=== PATIENT | male | born 1990 | race Caucasian/White ===

== ENCOUNTER 2020-03-02 19:53 | Emergency (ER) | payer OTHER, SELFPAY ==
[2020-03-02] VITALS (13 sets, daily range): BP systolic 126–181; BP diastolic 60–116; PULSE 97–123; RESP 18–26; TEMP 37.3; O2SAT 94–98; BMI 45.6
--- NOTE | 2020-03-02 20:05 | ED_ITS ---
HPI - SOB/Dyspnea General Chief Complaint: Shortness of Breath/Dyspnea Stated Complaint: SOB Time Seen by Provider: 03/02/20 19:54 Source: patient and family Mode of arrival: Ambulatory Limitations: no limitations History of Present Illness HPI Narrative: 29-year-old male nonsmoker history of morbid obesity and mild hypertension presents with his significant other in the chief complaint of rapidly worsening shortness of breath, cough with occasional hemoptysis and a recently diagnosed prostate cancer with significant metastatic involvement of his chest and mediastinum. Patient had developed some shortness of breath and had a telephone encounter with the [employer] on February 16 and subsequent negative [place] it does sting. He subsequently had chest x-ray performed on February 21 that showed the suspicion of a chest mass and the same day had CT of chest, abdomen, pelvis with IV contrast. Patient was at that point referred to Dr. Jan Leal at [facility] for evaluation. Patient was seen and evaluat ed on February 28 and had plans for multiple outpatient studies including PET scan and tissue biopsy by Interventional Radiology at [facility]. MD Complaint: shortness of breath and cough Onset (ago): day(s) Severity: severe Consistency/Duration: constant Relieving factors: nothing Exacerbating factors: exertion Associated symptoms: denies other symptoms Treatment prior to arrival: none Related Data Home Medications Medication Instructions Recorded Confirmed albuterol sulfate [ProAir HFA] 1 puff INHALATION QID 02/29/20 02/29/20 amoxicillin-pot clavulanate 1 tab PO BID 02/29/20 02/29/20 hydrochlorothiazide 25 mg PO DAILY 02/29/20 02/29/20 Allergies Allergy/AdvReac Type Severity Reaction Status Date / Time No Known Drug Allergies Allergy Verified 03/02/20 20:10 Review of Systems Constitutional Constitutional: Reports chills, Reports fatigue, Denies fever(s), Denies frequent falls, Denies lethargy, Reports poor appetite and Reports weakness Eyes Eyes: Denies change in vision, Denies eye discharge, Denies irritation and Denies loss of vision ENT Ears, Nose, Mouth, and Throat: Denies change in voice, Denies dizziness, Denies neck pain, Denies sore throat and Denies throat swelling Cardiovascular Cardiovascular: Denies chest pain, Denies irregular heart rhythm, Denies lightheadedness, Denies palpitations, Reports dyspnea, Reports dyspnea on exertion and Denies orthopnea Respiratory Respiratory: Reports cough, Reports dyspnea, Reports dyspnea on exertion and R eports wheezing Gastrointestinal Gastrointestinal: Denies abdominal pain, Denies change in bowel habits, Denies diarrhea, Denies nausea and Denies vomiting Musculoskeletal Musculoskeletal: Denies neck pain and Denies numbness Integumentary/Breasts Skin/Breast: Denies pruritus, Denies erythema, Denies rash and Denies wounds Neurologic Neurologic: Denies behavioral changes, Denies confusion, Denies dizziness, Denies frequent falls, Denies loss of vision, Denies numbness and Reports weakness Psychiatric Psychiatric: Denies anxiety, Denies behavioral changes, Denies confusion, Denies depression, Denies homicidal ideation and Denies suicidal ideation Endocrine Endocrine: Reports fatigue, Denies flushing and Denies palpitations Hematologic/Lymphatic Hematologic/Lymphatic: Denies easy bruising Allergic/Immunologic Allergic/Immunologic: Denies urticaria, Denies throat swelling and Reports wheezing Patient History Medical History Hypertension (Acute ~2020) Obesity (Acute) Social History Smoking Status: Never smoker alcohol intake: current (beer) substance use type: does not use Smoking Status: Never smoker Exam Narrative Exam Narrative: GENERAL: [29] year old patient appears stated age. Well- nourished, well-developed patient, in obvious distress, minimal exertion results in significant work of breathing, mild diaphoresis HEAD: Atraumatic. Normocephalic. EYES: Pupils equal round and reactive. Extraocular motions intact. No scleral icterus. No injection or drainage. ENT: Nose without bleeding, purulent drainage. Throat without erythema, tonsillar hypertrophy or exudate. Airway patent. NECK: Trachea midline. Non tender CARDIOVASCULAR: Regular rate and rhythm without murmurs, gallops, or rubs. RESPIRATORY: Clear to auscultation. Breath sounds equal bilaterally. No wheezes, rales, or rhonchi. GASTROINTESTINAL: Abdomen soft, non-tender, nondistended. EXTREMITIES: No edema or joint tenderness. BACK: Nontender without deformity or crepitance. No flank tenderness. NEURO: AOx3. SKIN: No rash or erythema of visible areas Initial Vital Signs Initial Vital Signs: Vital Signs Temperature 99.1 F 03/02/20 20:00 Pulse Rate 111 H 03/02/20 20:00 Respiratory Rate 18 03/02/20 20:00 Blood Pressure 167/116 H 03/02/20 20:00 Pulse Oximetry 98 03/02/20 20:00 Course Course Course Narrative: Initial call to local oncology after today's CT a demonstrates no PE or effusion. Plan was to consider admission here for urgent administration of chemotherapy. Dr. Leal called back shortly thereafter and stated he was unable to be as aggressive in the treatment of this patient's illness as he would like at this facility in requests transfer to the [facility]. images pushed, face sheet sent to Disc[facility] with medical oncology, happy to accept. Will arrange for bed Orders Ordered: ED Orders 03/02/20 20:06 CT angio chest PE protocol Stat 03/02/20 20:11 EKG-12 Lead Stat 03/02/20 20:25 C-Reactive Protein Quant Stat Complete Blood Count AUTO DIFF Stat Comprehensive Metabolic Panel Stat NT-proBNP (BNP-Adult 18+) Stat Procalcitonin Stat Troponin & CK Cardiac Panel Stat 03/02/20 20:34 Arterial Blood Gas Stat Sodium Chloride (Normal Saline 0.9%) 1,000 mls @ 125 mls/hr IV CONT JUSTIN Last Admin: 03/02/20 20:41 Dose: 125 mls/hr Documented by: NICOLA Vital Signs Vital signs: Vital Signs - 8 hr 03/02/20 20:00 03/02/20 20:02 03/02/20 20:30 Temperature 99.1 F Pulse Rate 111 H 111 H 109 H Respiratory Rate 18 Blood Pressure 167/116 H 167/116 H Pulse Oximetry 98 98 98 03/02/20 21:01 03/02/20 21:11 03/02/20 21:28 Temperature Pulse Rate 107 H 102 H Respiratory Rate 26 H Blood Pressure 169/113 H 181/112 H Pulse Oximetry 96 03/02/20 21:29 03/02/20 21:31 03/02/20 22:00 Temperature Pulse Rate 123 H 107 H 97 H Respiratory Rate 24 21 Blood Pressure 178/104 H 170/104 H Pulse Oximetry 94 95 98 03/02/20 22:30 03/02/20 23:01 03/02/20 23:30 Temperature Pulse Rate 100 H 105 H 114 H Respiratory Rate Blood Pressure 174/106 H 145/60 H Pulse Oximetry 96 96 97 MDM - SOB/Dyspnea Lab Data Result diagrams: 03/02/20 20:25 03/02/20 20:25 Labs: Lab Results 03/02/20 03/02/20 03/02/20 Range/Units 20:25 20:25 20:25 WBC 17.3 H (4.5-11.0) X10^3/uL RBC 4.97 (4.5-5.9) X10^6/uL Hgb 14.6 (13.5-17.5) g/dL Hct 42.0 (41-53) % MCV 84.4 (80-100) fL MCH 29.4 (26-34) PG MCHC 34.8 (30-36) % RDW 13.9 (11.6-14.8) % Plt Count 298 (150-400) X10^3/uL Neut % (Auto) 76.9 H (50-75) % Lymph % (Auto) 9.6 L (25-40) % Island % (Auto) 12.5 (3-14) % Eos % (Auto) 0.6 L (2-4) % Baso % (Auto) 0.4 (0-2) % Neut # (Auto) 81125 H (9218-3315) /uL Lymph # (Auto) 1700 (9629-7374) /uL Island # (Auto) 2200 H (0-900) /uL Eos # (Auto) 100 (0-450) /uL Baso # (Auto) 100 (0-100) /uL ABG pH (7.35-7.45) ABG pCO2 (35-45) mmHg ABG pO2 (80-100) mmHg ABG HCO3 (22-26) mmol/L ABG Total CO2 (21-31) mmol/L ABG O2 Saturation (95-100) % ABG Base Excess (-2-2) mmol/L FiO2 Sodium 135 L (137-145) mmol/L Potassium 4.0 (3.4-5.1) mmol/L Chloride 102 (98-107) mmol/L Carbon Dioxide 26 (22-32) mmol/L BUN 11 (9-20) mg/dL Creatinine 0.80 (0.66-1.25) mg/dL Estimated GFR > 60.0 (>60) mL/min BUN/Creatinine Ratio 13.8 (6-22) Glucose 103 H (70-100) mg/dL Calcium 9.4 (8.4-10.2) mg/dL Total Bilirubin 0.9 (0.2-1.3) mg/dL AST 40 (17-59) IU/L ALT 29 (<50) IU/L Alkaline Phosphatase 64 (38-126) U/L Total Creatine Kinase 56 (55-170) U/L CK-MB (CK-2) TNP CK-MB (CK-2) Rel Index TNP Troponin I 0.039 H (0.01-0.034) ng/mL C-Reactive Protein 20.2 H (<1.0) mg/dL NT-Pro-B Natriuret Pep 163 H (<125) pg/mL Total Protein 7.5 (6.3-8.2) g/dL Albumin 3.9 (3.5-5.0) g/dL Globulin 3.6 (1.7-4.1) g/dL Albumin/Globulin Ratio 1.1 (1.0-2.8) Procalcitonin 0.12 (<0.5) ng/mL 03/02/20 Range/Units 20:34 WBC (4.5-11.0) X10^3/uL RBC (4.5-5.9) X10^6/uL Hgb (13.5-17.5) g/dL Hct (41-53) % MCV (80-100) fL MCH (26-34) PG MCHC (30-36) % RDW (11.6-14.8) % Plt Count (150-400) X10^3/uL Neut % (Auto) (50-75) % Lymph % (Auto) (25-40) % Island % (Auto) (3-14) % Eos % (Auto) (2-4) % Baso % (Auto) (0-2) % Neut # (Auto) (5550-4695) /uL Lymph # (Auto) (0456-3932) /uL Island # (Auto) (0-900) /uL Eos # (Auto) (0-450) /uL Baso # (Auto) (0-100) /uL ABG pH 7.46 H (7.35-7.45) ABG pCO2 32.1 L (35-45) mmHg ABG pO2 83 (80-100) mmHg ABG HCO3 23 (22-26) mmol/L ABG Total CO2 24 (21-31) mmol/L ABG O2 Saturation 97 (95-100) % ABG Base Excess -1.0 (-2-2) mmol/L FiO2 21 Sodium (137-145) mmol/L Potassium (3.4-5.1) mmol/L Chloride (98-107) mmol/L Carbon Dioxide (22-32) mmol/L BUN (9-20) mg/dL Creatinine (0.66-1.25) mg/dL Estimated GFR (>60) mL/min BUN/Creatinine Ratio (6-22) Glucose (70-100) mg/dL Calcium (8.4-10.2) mg/dL Total Bilirubin (0.2-1.3) mg/dL AST (17-59) IU/L ALT (<50) IU/L Alkaline Phosphatase (38-126) U/L Total Creatine Kinase (55-170) U/L CK-MB (CK-2) CK-MB (CK-2) Rel Index Troponin I (0.01-0.034) ng/mL C-Reactive Protein (<1.0) mg/dL NT-Pro-B Natriuret Pep (<125) pg/mL Total Protein (6.3-8.2) g/dL Albumin (3.5-5.0) g/dL Globulin (1.7-4.1) g/dL Albumin/Globulin Ratio (1.0-2.8) Procalcitonin (<0.5) ng/mL Imaging Data CT scan - chest: Radiologist's Impression: Keny Hampton 29 M [address] [address] [address] Scan Report Signed Patient: Keny Hampton EMR#: [id number] : 1990Acct:[id number] Age/Sex: te of Service: 03/02/20 Loc: ED Accession Number: [id number] Procedure: CT angio chest PE protocol Ordering Provider: [employer] D.O. PROCEDURE: CT ANGIO CHEST PE PROTOCOL INDICATIONS: CP, SOB, hypoxia TECHNIQUE: After the administration of intravenous contrast, 2 mm thick sections acquired from the pulmonary apices to the posterior costophrenic angles. 3-dimensional maximum intensity projection (MIP) coronal and sagittal reformats were then acquired through the thorax. For radiation dose reduction, the following was used: automated exposure control, adjustment of mA and/or kV according to patient size. COMPARISON: [facility], , CT CHEST/ABD/PEL W/CONTRAST, 02/22/2020, 12:17. FINDINGS: Image quality: Excellent. Pulmonary arteries: Pulmonary arteries are normal in size, and demonstrate no intraluminal filling defects to suggest central pulmonary embolism. Lungs and pleura: Innumerable pulmonary masses are visualized bilaterally, ranging in size from less than 1 cm in diameter TO 4.8 cm in diameter. No pleural effusion or pneumothorax. Mediastinum: Heart size is normal, without pericardial effusion. There is a heterogeneously enhancing anterior mediastinal mass which measures approximately 15.5 x 8.2 cm in the axial plane. Additionally, there are multiple pretracheal lymph nodes measuring up to 2.2 cm in diameter. Thoracic aorta is normal in caliber and enhancement. Esophagus is normal in caliber, without hiatal hernia. Bones and chest wall: No suspicious bony lesions. Ribs and thoracic spine appear intact throughout. Thyroid gland. No axillary or supraclavicular adenopathy. Abdomen: Visualized upper abdominal solid organs appear normal in the early arterial phase of enhancement. IMPRESSION: 1. No acute pulmonary embolus. 2. Innumerable pulmonary mass lesions, mediastinal mass, and mediastinal adenopathy consistent with the diagnosis of testicular cancer. Dictated by: Marisa Welch M.D. on 03/02/2020 at 21:08 Approved by: Marisa Welch M.D. on 03/02/2020 at 21:15 Critical Care Time Critical Care Time Critical Care Time: Yes Total Critical Care Time: 30 Attestation: The high probability of a clinically significant, sudden or life threatening deterioration of the [CV] system(s) required my full and direct attention, intervention and personal management. The aggregate critical care time was [30] minutes. This time is in addition to time spent performing reported procedures but includes the following: [x] Data Review and interpretation [x] Patient assessment and monitoring of vital signs [x] Documentation [x] Medication orders and management Discharge Plan Departure Patient Disposition: Admitted as Observation Clinical Impression: Acute dyspnea
[2020-03-02] MEDS: SODIUM CHLORIDE 0.9% 1,000 ML 125 ML IV (20:41)
--- NOTE | 2020-03-02 20:45 | PC.NURSE ---
Pt recently dx with prostate CA with mets. SOB, orthopnea. 97% RA. sitting up position of comfort. IV placed, labs drawn, EKG and ABG obtained. awaiting PE protocol CT.
[2020-03-02 20:51] LABS: Alanine Aminotransferase 29 IU/L (<50); Albumin 3.9 g/dL (3.5-5.0); Albumin Globulin Ratio 1.1 (1.0-2.8); Alkaline Phosphatase 64 U/L (38-126); Aspartate Aminotransferase 40 IU/L (17-59); BUN Creatinine Ratio 13.8 (6-22); Bilirubin Total 0.9 mg/dL (0.2-1.3); Blood Urea Nitrogen 11 mg/dL (9-20); Calcium 9.4 mg/dL (8.4-10.2); Carbon Dioxide 26 mmol/L (22-32); Chloride 102 mmol/L (98-107); Creatine Kinase 56 U/L (55-170); Estimated Glomerular Filt Rate > 60.0 mL/min (>60); Globulin 3.6 g/dL (1.7-4.1); Glucose 103 mg/dL (70-100); HEMOLYSIS 45 (0-50); Sodium 135 mmol/L (137-145); Total Protein 7.5 g/dL (6.3-8.2)
[2020-03-02 20:51] LABS: HCO3 ABG 23 mmol/L (22-26); Oxygen Saturation ABG 97 % (95-100); PCO2 ABG 32.1 mmHg (35-45); PO2 ABG 83 mmHg (80-100); TCO2 ABG 24 mmol/L (21-31); pH ABG 7.46 (7.35-7.45)
[2020-03-02 20:52] LABS: Fractionated Inspired Oxygen 21
[2020-03-02 21:00] LABS: Add Manual Diff / Slide Review NO; Basophils Absolute Auto 100 /uL (0-100); Basophils Percent Auto 0.4 % (0-2); Eosinophils Absolute Auto 100 /uL (0-450); Eosinophils Percent Auto 0.6 % (2-4); Hemoglobin 14.6 g/dL (13.5-17.5); Lymphocytes Absolute Auto 1700 /uL (1100-4500); Lymphocytes Percent Auto 9.6 % (25-40); Mean Corpuscular HGB Conc 34.8 % (30-36); Mean Corpuscular Hemoglobin 29.4 PG (26-34); Mean Corpuscular Volume 84.4 fL (80-100); Monocytes Absolute Auto 2200 /uL (0-900); Monocytes Percent Auto 12.5 % (3-14); Neutrophils Absolute Auto 13300 /uL (1500-7000); Neutrophils Percent Auto 76.9 % (50-75); Platelet Count 298 X10^3/uL (150-400); Red Blood Cell Count 4.97 X10^6/uL (4.5-5.9); Red Cell Distribution Width 13.9 % (11.6-14.8); White Blood Cell Count 17.3 X10^3/uL (4.5-11.0)
[2020-03-02 21:06] LABS: Troponin I 0.039 ng/mL (0.01-0.034)
[2020-03-02 21:07] LABS: NT-proBNP (BNP-Adult 18+) 163 pg/mL (<125)
[2020-03-02 21:08] LABS: Procalcitonin 0.12 ng/mL (<0.5)
[2020-03-02 21:12] LABS: C-Reactive Protein Quant 20.2 mg/dL (<1.0)
[2020-03-03] VITALS: BP 136/66; PULSE 104; O2SAT 95
[2020-03-03 00:29] LABS: COVID19 -Nasal RAPID Negative (Negative)
[2020-03-03 00:30] VITALS: BP 169/116; PULSE 115; O2SAT 96
[2020-03-03 01:00] VITALS: PULSE 113; O2SAT 98
== END 2020-03-03 01:08 | disposition admitted as inpatient to this hospital (09) ==
LOC: ED 21:35 → AC 21:48
PROVIDERS: Emergency Provider Emergency Medicine; Referring Provider Emergency Medicine
DX: R06.02 Shortness of breath (principal); R09.02 Hypoxemia; R07.9 Chest pain, unspecified; E66.01 Morbid (severe) obesity due to excess calories; I10 Essential (primary) hypertension; R05 Cough
CPT/HCPCS: 36415; 36600; 71275; 80053; 82550; 82805; 83880; 84145; 84484; 85025; 86140; 87635; 93005; 99284; 99291; Q9967

== ENCOUNTER → 2020-03-23 11:36 | Outpatient (CLI) | payer OTHER, SELFPAY ==
--- NOTE | 2020-03-23 11:39 | DI.MRI.S_ITS ---
PROCEDURE: MR HEAD/BRAIN WO/W CON INDICATIONS: germ cell tumor, brain metastasis TECHNIQUE: Noncontrast axial T1 spin echo, axial T2 fast spin echo, sagittal and axial FLAIR, coronal T2 fast spin echo, axial gradient echo, axial diffusion and ADC through the brain. After the administration of contrast, axial and coronal 3D VIBE or T1 spin echo with fat saturation through the brain. COMPARISON: Outside Facility, RG, MRI BRAIN W/WO CONTRAST, 03/08/2020, 16:40. FINDINGS: Image quality: Excellent. CSF Spaces: Basal cisterns are patent. No extra-axial fluid collections. Ventricles are normal in size and shape. Brain: No midline shift. No intracranial bleeds or masses. No abnormal intracranial enhancement. Small foci of postcontrast enhancement involving the left insula, right sanchez radiata right frontal cortical randall matter, left cerebellar hemisphere and right cerebellar hemisphere have resolved in the interval since prior MRI obtained March 08, 2020. Focus of GRE susceptibility artifact noted in the anterior margin of the left insula which corresponds to the area of prior ring enhancement. The brainstem appears normal. Diffusion-weighted images demonstrate no acute ischemic insults. Multiple, small, punctate foci of restricted diffusion identified by prior MRI March 08, 2020 have resolved No chronic ischemic insults. Normal intravascular flow voids are present. Skull and face: Calvarial marrow is normal in signal. Orbits appear normal. Sinuses: Sinuses and mastoids appear clear. IMPRESSION: 1. Foci of restricted diffusion and post-contrast enhancement involving the cerebral hemispheres and cerebellar hemispheres concerning for metastatic lesions have resolved in the interval since prior exam obtained March 08, 2020 compatible with response to therapy. 2. Small focus of GRE artifact in the left insula compatible with hemorrhage associated with the previously identified metastatic lesion is redemonstrated. No acute intracranial hemorrhage. Dictated by: Belkys White MD, PhD on 03/23/2020 at 14:43 Approved by: Belkys White MD, PhD on 03/23/2020 at 15:00
== END ==
PROVIDERS: Referring Provider Internal Medicine Hematology & Oncology; Visit Provider Internal Medicine Hematology & Oncology
DX: C80.1 Malignant (primary) neoplasm, unspecified (principal); C79.31 Secondary malignant neoplasm of brain; C78.01 Secondary malignant neoplasm of right lung; C78.02 Secondary malignant neoplasm of left lung
CPT/HCPCS: 70553; A9579

== ENCOUNTER → 2020-05-26 08:01 | Outpatient (CLI) | payer OTHER, SELFPAY ==
--- NOTE | 2020-05-26 08:02 | DI.MRI.S_ITS ---
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 After the administration of contrast, axial and coronal 3D VIBE or T1 spin echo with fat saturation through the brain. COMPARISON: Outside Facility, , MRI BRAIN W/WO CONTRAST, 03/08/2020, 16:40. [facility], , MR HEAD/BRAIN WO/W CON, 03/23/2020, 11:50. FINDINGS: Image quality: Excellent. CSF Spaces: Basal cisterns are patent. No extra-axial fluid collections. Ventricles are normal in size and shape. Brain: There is small focus of susceptibility artifacts in the right frontal lobe, demonstrating subtle T2 hyperintensity and mild postcontrast enhancement (series 7 image 22, series 10, image 22 and series 13, image 147). This finding is new. Another new small focus of susceptibility artifact is noted in the right parietal lobe (series 10, image 17), demonstrating no corresponding increased T2 signal or enhancement. There is a focus of susceptibility artifact within the left insular cortex, correlating with previously seen in metastatic lesion with intratumoral hemorrhage. There is no visible enhancement in the area. A small focus of T2 hyperintensity in the right frontal white matter demonstrating no abnormal enhancement appears unchanged, which may be secondary to chronic small vessel ischemia. No midline shift. The brainstem appears normal. Diffusion-weighted images demonstrate no acute ischemic insults. Normal intravascular flow voids are present. Skull and face: Calvarial marrow is normal in signal. Orbits appear normal. Sinuses: There is mucosal thickening in ethmoid and maxillary sinuses bilaterally, and the left sphenoid sinus. Fluid signal is present in the left mastoid. IMPRESSION: 1. A new small focus of susceptibility artifact in the right frontal lobe, demonstrating subtle T2 hyperintensity and mild postcontrast enhancement (series 7 image 22, series 10, image 22 and series 13, image 147) concerning for recurrent neoplasm. Recommend correlation with tumor markers and close imaging follow-up. 2. A 2nd new small focus of susceptibility artifact is noted in the right parietal lobe (series 10, image 17), demonstrating no corresponding increased T2 signal or enhancement. This lesion is indeterminate. 3. Previously treated metastatic disease with hemorrhagic remnant in the left insula. 4. Mucosal thickening in ethmoid and maxillary sinuses bilaterally, as well as the left sphenoid sinus. 5. Fluid signal within the left mastoids. Recommend clinical correlation for mastoiditis. Dictated by: Ganesh Huffman M.D. on 05/26/2020 at 9:04 Approved by: Ganesh Huffman M.D. on 05/26/2020 at 9:39
== END ==
PROVIDERS: Referring Provider Internal Medicine Hematology & Oncology; Visit Provider Internal Medicine Hematology & Oncology
DX: C80.1 Malignant (primary) neoplasm, unspecified (principal); C79.31 Secondary malignant neoplasm of brain
CPT/HCPCS: 70553; A9579

== ENCOUNTER → 2020-06-20 15:35 | Outpatient (CLI) | payer OTHER, SELFPAY ==
--- NOTE | 2020-06-20 15:36 | DI.MRI.S_ITS ---
PROCEDURE: MR HEAD/BRAIN WO/W CON INDICATIONS: mediastinal germ cell tumor, seizure episodes x 3 TECHNIQUE: Noncontrast axial T1 spin echo, axial T2 fast spin echo, sagittal and axial FLAIR, coronal T2 fast spin echo, axial gradient echo, axial diffusion and ADC through the brain. After the administration of contrast, axial and coronal 3D VIBE or T1 spin echo with fat saturation through the brain. COMPARISON: [facility], MR, MR HEAD/BRAIN WO/W CON, 03/23/2020, 11:50. Outside Facility, RG, MRI BRAIN W/WO CONTRAST, 03/08/2020, 16:40. [facility], MR, MR HEAD/BRAIN WO/W CON, 05/26/2020, 8:34. FINDINGS: Image quality: Excellent. CSF Spaces: Basal cisterns are patent. No extra-axial fluid collections. Ventricles are normal in size and shape. Brain: The left frontal lesion demonstrates interval enlargement now measuring 2 cm and demonstrates peripheral enhancement, consistent with metastasis. There is intratumoral bleed with susceptibility artifact. The left insular lesion with susceptibility artifact appears unchanged. The tiny focus of susceptibility artifact in the right parietal lobe is unchanged, remains indeterminate and may be secondary to vascular calcification. There is increased vasogenic edema surrounding the right frontal mass. No significant mass effect or midline shift. The brainstem appears normal. Diffusion-weighted images demonstrate no acute ischemic insults. No chronic ischemic insults. Normal intravascular flow voids are present. Skull and face: Calvarial marrow is normal in signal. Orbits appear normal. Sinuses: There is persistent fluid in the left mastoids. Mild mucosal thickening in ethmoid and maxillary sinuses bilaterally demonstrates interval improvement. IMPRESSION: 1. Interval enlargement of the right frontal lesion, which demonstrates peripheral enhancement consistent with metastasis. There is increased vasogenic edema surrounding the mass. Intratumoral bleed is present with susceptibility artifact on gradient echo images. 2. Stable left insular lesion consistent with treated metastasis. 3. Unchanged susceptibility artifact in the right parietal area. The result was discussed with Dr. Leal. Dictated by: Ganesh Huffman M.D. on 06/20/2020 at 16:45 Approved by: Ganesh Huffman M.D. on 06/20/2020 at 16:59
== END ==
PROVIDERS: Referring Provider Internal Medicine Hematology & Oncology; Visit Provider Internal Medicine Hematology & Oncology
DX: C80.1 Malignant (primary) neoplasm, unspecified (principal); R56.9 Unspecified convulsions; C79.81 Secondary malignant neoplasm of breast
CPT/HCPCS: 70553

== ENCOUNTER 2020-06-20 16:44 | Emergency (ER) | payer OTHER, SELFPAY ==
[2020-06-20] VITALS (10 sets, daily range): BP systolic 118–154; BP diastolic 56–106; PULSE 74–146; RESP 18–33; TEMP 37.3; O2SAT 93–100
--- NOTE | 2020-06-20 16:51 | ED.SEIZURE ---
HPI - Seizure General Chief Complaint: Seizure Stated Complaint: Seizure Time Seen by Provider: 06/20/20 16:45 Source: family Mode of arrival: Family Vehicle Limitations: altered mental status History of Present Illness HPI Narrative: Patient is a 29-year-old male with a known history of testicular cancer. 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 Approximately 3 days ago started having what appeared to be focal seizure-like activity. Saw his oncologist today who ordered a outpatient stat MRI brain with without contrast. He had this done here at this hospital and while he was in the waiting room after the MRI had which was described as a full tonic-clonic seizure. This was not witnessed by myself it was witnessed by nursing staff. Unsure how long it lasted but there was no longer than 1-2 minutes. Resolved on its own. He was postictal afterwards. When patient recovered from the seizure he stated that he felt like the seizure was coming on. Was the same feeling that he has had for the past couple days. Related Data Home Medications Medication Instructions Recorded Confirmed albuterol sulfate [ProAir HFA] 1 puff INHALATION QID 02/29/20 05/05/20 pantoprazole [Protonix] 40 mg PO DAILY 03/30/20 05/05/20 prochlorperazine maleate 10 mg PO Q6HR 03/30/20 05/05/20 multivitamin 1 cap PO DAILY 05/05/20 05/05/20 Previous Rx's Medication Instructions Recorded ondansetron 4 - 8 mg PO Q8H PRN #60 tab 04/21/20 Allergies Allergy/AdvReac Type Severity Reaction Status Date / Time No Known Drug Allergies Allergy Verified 06/20/20 16:57 Review of Systems Constitutional Constitutional: Denies chills, Denies fatigue, Denies fever(s) and Denies headache(s) Eyes Eyes: Denies change in vision ENT Ears, Nose, Mouth, and Throat: Denies headache(s) and Denies sore throat Cardiovascular Cardiovascular: Denies chest pain and Denies dyspnea Respiratory Respiratory: Denies dyspnea Gastrointestinal Gastrointestinal: Denies abdominal pain, Denies nausea and Denies vomiting Musculoskeletal Musculoskeletal: Denies arthralgias and Denies myalgias Integumentary/Breasts Skin/Breast: Denies rash Neurologic Neurologic: Denies confusion, Denies headache(s) and Reports seizure-like activity Psychiatric Psychiatric: Denies anxiety, Denies confusion and Denies depression Endocrine Endocrine: Denies fatigue Hematologic/Lymphatic Hematologic/Lymphatic: Denies easy bleeding and Denies easy bruising Allergic/Immunologic Allergic/Immunologic: Denies urticaria Patient History Medical History Hypertension (Acute ~2020) Obesity (Acute) Testicular cancer (Acute) Social History Smoking Status: Never smoker alcohol intake: current (beer) substance use type: does not use Smoking Status: Never smoker alcohol intake frequency: a few times a week Substance Use Type: does not use Exam Initial Vital Signs Initial Vital Signs: Vital Signs Temperature 99.2 F 06/20/20 16:45 Pulse Rate 144 H 06/20/20 16:45 Respiratory Rate 33 H 06/20/20 16:45 Blood Pressure 154/81 H 06/20/20 16:45 Pulse Oximetry 94 06/20/20 16:45 Const General: cooperative and comfortable Limitations: mental status not altered HENMT Head: normal to inspection and normocephalic Resp Effort & Inspection: normal respiratory effort Auscultation: clear to auscultation bilaterally Cardio Rate: regular rate Rhythm: regular rhythm Skin Lesions: no lesions Rashes: no rashes Neuro General: patient alert, patient awake and patient oriented x3 Cognition: normal cognition Speech: speech normal Extrem General: normal to inspection and capillary refill normal Psych Appearance: grossly normal and well kempt Course Orders Ordered: ED Orders 06/20/20 16:46 EKG-12 Lead Routine 06/20/20 16:50 Complete Blood Count AUTO DIFF Stat Comprehensive Metabolic Panel Stat Lipase Stat Prolactin Stat 06/20/20 18:10 COVID19 -ED/INPAT/OR/L&D Stat Discontinued Medications Dexamethasone (Decadron) 16 mg IV NOW ONE Stop: 06/20/20 17:13 Last Admin: 06/20/20 17:44 Dose: 16 mg Documented by: SLY Levetiracetam 1,000 mg/ Sodium (Chloride) 110 mls @ 440 mls/hr IV NOW ONE Stop: 06/20/20 17:13 Last Admin: 06/20/20 17:21 Dose: 440 mls/hr Documented by: SLY Lorazepam (Ativan) 2 mg IV NOW ONE Stop: 06/20/20 16:50 Last Admin: 06/20/20 16:55 Dose: 2 mg Documented by: SLY Vital Signs Vital signs: Vital Signs - 8 hr 06/20/20 16:45 06/20/20 16:52 06/20/20 17:00 Temperature 99.2 F Pulse Rate 144 H 146 H 135 H Respiratory Rate 33 H 31 H 33 H Blood Pressure 154/81 H Pulse Oximetry 94 94 93 06/20/20 17:30 06/20/20 18:00 06/20/20 18:26 Temperature Pulse Rate 120 H 106 H 95 H Respiratory Rate 31 H 24 29 H Blood Pressure 129/72 Pulse Oximetry 96 100 97 06/20/20 18:30 Temperature Pulse Rate 93 H Respiratory Rate 27 H Blood Pressure 142/79 H Pulse Oximetry 93 MDM - Seizure Lab Data Attestation: I reviewed the patient's lab results. Result diagrams: 06/20/20 16:50 06/20/20 16:50 Labs: Lab Results 06/20/20 06/20/20 06/20/20 Range/Units 16:50 16:50 16:50 WBC 9.6 D (4.5-11.0) X10^3/uL RBC 3.49 L (4.5-5.9) X10^6/uL Hgb 12.1 L (13.5-17.5) g/dL Hct 36.4 L (41-53) % MCV 104.1 H D (80-100) fL MCH 34.6 H (26-34) PG MCHC 33.3 (30-36) % RDW 16.9 H (11.6-14.8) % Plt Count 207 (150-400) X10^3/uL Neut % (Auto) 57.3 (50-75) % Lymph % (Auto) 25.3 (25-40) % [place] % (Auto) 14.3 H (3-14) % Eos % (Auto) 2.6 (2-4) % Baso % (Auto) 0.5 (0-2) % Neut # (Auto) 5500 (5159-2421) /uL Lymph # (Auto) 2400 (2055-6809) /uL [place] # (Auto) 1400 H (0-900) /uL Eos # (Auto) 200 (0-450) /uL Baso # (Auto) 100 (0-100) /uL Sodium 144 (137-145) mmol/L Potassium 3.5 (3.4-5.1) mmol/L Chloride 107 (98-107) mmol/L Carbon Dioxide 14 L (22-32) mmol/L BUN 11 (9-20) mg/dL Creatinine 1.02 (0.66-1.25) mg/dL Estimated GFR > 60.0 (>60) mL/min BUN/Creatinine Ratio 10.8 (6-22) Glucose 114 H (70-100) mg/dL Calcium 9.4 (8.4-10.2) mg/dL Total Bilirubin 1.0 (0.2-1.3) mg/dL AST 33 (17-59) IU/L ALT 41 (<50) IU/L Alkaline Phosphatase 69 (38-126) U/L Total Protein 7.8 (6.3-8.2) g/dL Albumin 4.7 (3.5-5.0) g/dL Globulin 3.1 (1.7-4.1) g/dL Albumin/Globulin Ratio 1.5 (1.0-2.8) Lipase 124 (23-300) U/L Prolactin 63.0 H (3.7-17.9) ng/mL COVID-19 PCR (Negative) 06/20/20 Range/Units 18:10 WBC (4.5-11.0) X10^3/uL RBC (4.5-5.9) X10^6/uL Hgb (13.5-17.5) g/dL Hct (41-53) % MCV (80-100) fL MCH (26-34) PG MCHC (30-36) % RDW (11.6-14.8) % Plt Count (150-400) X10^3/uL Neut % (Auto) (50-75) % Lymph % (Auto) (25-40) % [place] % (Auto) (3-14) % Eos % (Auto) (2-4) % Baso % (Auto) (0-2) % Neut # (Auto) (3895-0363) /uL Lymph # (Auto) (2195-0760) /uL [place] # (Auto) (0-900) /uL Eos # (Auto) (0-450) /uL Baso # (Auto) (0-100) /uL Sodium (137-145) mmol/L Potassium (3.4-5.1) mmol/L Chloride (98-107) mmol/L Carbon Dioxide (22-32) mmol/L BUN (9-20) mg/dL Creatinine (0.66-1.25) mg/dL Estimated GFR (>60) mL/min BUN/Creatinine Ratio (6-22) Glucose (70-100) mg/dL Calcium (8.4-10.2) mg/dL Total Bilirubin (0.2-1.3) mg/dL AST (17-59) IU/L ALT (<50) IU/L Alkaline Phosphatase (38-126) U/L Total Protein (6.3-8.2) g/dL Albumin (3.5-5.0) g/dL Globulin (1.7-4.1) g/dL Albumin/Globulin Ratio (1.0-2.8) Lipase (23-300) U/L Prolactin (3.7-17.9) ng/mL COVID-19 PCR Negative (Negative) Point of Care Testing Glucose POC 102 Imaging Data MRI brain: Radiologist's Impression: [address] [address] Magnetic Resonance Report Signed Patient: Keny Hampton EMR#: [id number] : 1990Acct:[id number] Age/Sex: / MDate of Service: 06/20/20 Loc: MRI Accession Number: [id number] Procedure: MR head/brain wo/w con Ordering Provider: Jan Cooper MD PROCEDURE: MR HEAD/BRAIN WO/W CON INDICATIONS: mediastinal germ cell tumor, seizure episodes x 3 TECHNIQUE: Noncontrast axial T1 spin echo, axial T2 fast spin echo, sagittal and axial FLAIR, coronal T2 fast spin echo, axial gradient echo, axial diffusion and ADC through the brain. After the administration of contrast, axial and coronal 3D VIBE or T1 spin echo with fat saturation through the brain. COMPARISON: [facility], , MR HEAD/BRAIN WO/W CON, 03/23/2020, 11:50. Outside Facility, , MRI BRAIN W/WO CONTRAST, 03/08/2020, 16:40. [facility], MR, MR HEAD/BRAIN WO/W CON, 05/26/2020, 8:34. FINDINGS: Image quality: Excellent. CSF Spaces: Basal cisterns are patent. No extra-axial fluid collections. Ventricles are normal in size and shape. Brain: The left frontal lesion demonstrates interval enlargement now measuring 2 cm and demonstrates peripheral enhancement, consistent with metastasis. There is intratumoral bleed with susceptibility artifact. The left insular lesion with susceptibility artifact appears unchanged. The tiny focus of susceptibility artifact in the right parietal lobe is unchanged, remains indeterminate and may be secondary to vascular calcification. There is increased vasogenic edema surrounding the right frontal mass. No significant mass effect or midline shift. The brainstem appears normal. Diffusion-weighted images demonstrate no acute ischemic insults. No chronic ischemic insults. Normal intravascular flow voids are present. Skull and face: Calvarial marrow is normal in signal. Orbits appear normal. Sinuses: There is persistent fluid in the left mastoids. Mild mucosal thickening in ethmoid and maxillary sinuses bilaterally demonstrates interval improvement. IMPRESSION: 1. Interval enlargement of the right frontal lesion, which demonstrates peripheral enhancement consistent with metastasis. There is increased vasogenic edema surrounding the mass. Intratumoral bleed is present with susceptibility artifact on gradient echo images. 2. Stable left insular lesion consistent with treated metastasis. 3. Unchanged susceptibility artifact in the right parietal area. The result was discussed with Dr. Cooper. Dictated by: Ganesh Huffman M.D. on 06/20/2020 at 16:45 Approved by: Ganesh Huffman M.D. on 06/20/2020 at 16:59 MDM Narrative Medical decision making narrative: It appeared the patient had seizure like activity in the waiting room after his MRI. This self-resolved. He was given 2 mg of Ativan upon arrival here to the emergency department and quickly recovered and became alert and oriented. The exam in this note was after he was back to baseline was alert oriented x3. The MRI include in this note is for reference purposes only. It was ordered as an outpatient by his oncologist. Does show what appears to be a new brain met with surrounding vasogenic edema potentially bleeding into the metastasis. I did discuss this with Dr. cooper who was his oncologist who stated that he got a call from Radiology with the findings on the MRI. He has been in contact with the oncologist at [facility] who recommend the patient be transferred to their facility. Patient was given 16 mg of Decadron and 1 g of Keppra. I did discuss the case with on-call Oncology the in [facility] who accepts the patient for transfer. Discussed the findings of the MRI and the transfer the patient and his who is at bedside. They expressed understanding and agreement. Discharge Plan Departure Patient Disposition: [facility] Clinical Impression: Germ cell cancer, Brain metastases, Seizure Prescriptions: No Action albuterol sulfate [ProAir HFA] 90 mcg/actuation Hfa Aerosol Inhaler 1 puff INHALATION QID RF: 0 pantoprazole [Protonix] 40 mg Tablet,Delayed Release (Dr/Ec) 40 mg PO DAILY RF: 0 prochlorperazine maleate 10 mg tablet 10 mg PO Q6HR RF: 0 ondansetron 4 mg Tablet,Disintegrating 4 - 8 mg PO Q8H PRN (Reason: Nausea And Vomiting) Qty: 60 RF: 0 multivitamin Capsule 1 cap PO DAILY RF: 0
[2020-06-20] MEDS: LORazepam 2 MG/ML INJ IV (16:55)
[2020-06-20 17:01] LABS: Add Manual Diff / Slide Review NO; Basophils Absolute Auto 100 /uL (0-100); Basophils Percent Auto 0.5 % (0-2); Eosinophils Absolute Auto 200 /uL (0-450); Eosinophils Percent Auto 2.6 % (2-4); Hematocrit 36.4 % (41-53); Hemoglobin 12.1 g/dL (13.5-17.5); Lymphocytes Absolute Auto 2400 /uL (1100-4500); Lymphocytes Percent Auto 25.3 % (25-40); Mean Corpuscular HGB Conc 33.3 % (30-36); Mean Corpuscular Hemoglobin 34.6 PG (26-34); Mean Corpuscular Volume 104.1 fL (80-100); Monocytes Absolute Auto 1400 /uL (0-900); Monocytes Percent Auto 14.3 % (3-14); Neutrophils Absolute Auto 5500 /uL (1500-7000); Neutrophils Percent Auto 57.3 % (50-75); Platelet Count 207 X10^3/uL (150-400); Red Blood Cell Count 3.49 X10^6/uL (4.5-5.9); Red Cell Distribution Width 16.9 % (11.6-14.8); White Blood Cell Count 9.6 X10^3/uL (4.5-11.0)
[2020-06-20 17:13] LABS: Lipase 124 U/L (23-300)
[2020-06-20 17:14] LABS: Albumin 4.7 g/dL (3.5-5.0); Albumin Globulin Ratio 1.5 (1.0-2.8); Alkaline Phosphatase 69 U/L (38-126); Aspartate Aminotransferase 33 IU/L (17-59); BUN Creatinine Ratio 10.8 (6-22); Blood Urea Nitrogen 11 mg/dL (9-20); Calcium 9.4 mg/dL (8.4-10.2); Carbon Dioxide 14 mmol/L (22-32); Chloride 107 mmol/L (98-107); Estimated Glomerular Filt Rate > 60.0 mL/min (>60); Globulin 3.1 g/dL (1.7-4.1); Glucose 114 mg/dL (70-100); HEMOLYSIS < 15 (0-50); Potassium 3.5 mmol/L (3.4-5.1); Sodium 144 mmol/L (137-145); Total Protein 7.8 g/dL (6.3-8.2)
[2020-06-20 17:20] LABS: Alanine Aminotransferase 41 IU/L (<50)
[2020-06-20] MEDS: levETIRAcetam 1,000 MG in SODIUM CHLORIDE 0.9% 100 ML 440 ML IV (17:21)
[2020-06-20] MEDS: DEXAMETHASONE 4 MG/ML VIAL 16 MG IV (17:44)
[2020-06-20 18:39] LABS: COVID19 -Nasal RAPID Negative (Negative)
[2020-06-21] VITALS (34 sets, daily range): BP systolic 127–146; BP diastolic 69–85; PULSE 61–93; RESP 14–16; TEMP 36.8–36.9; O2SAT 95–99
[2020-06-21] MEDS: levETIRAcetam 1,000 MG in SODIUM CHLORIDE 0.9% 100 ML 440 ML IV ×2 (07:33→18:09)
--- NOTE | 2020-06-21 10:11 | PC.NURSE ---
pt ate most of his breakfast.
--- NOTE | 2020-06-21 16:59 | PC.NURSE ---
[id number] Pt asking for update. MD Patino in room to talk with pt about progress on transfer.
[2020-06-21] MEDS: DEXAMETHASONE 4 MG/ML VIAL IV (18:10)
== END 2020-06-21 20:23 | disposition short-term general hospital (02) ==
PROVIDERS: Emergency Provider Emergency Medicine
DX: C80.1 Malignant (primary) neoplasm, unspecified (principal); C79.31 Secondary malignant neoplasm of brain; R56.9 Unspecified convulsions; C78.01 Secondary malignant neoplasm of right lung; C78.02 Secondary malignant neoplasm of left lung; R00.0 Tachycardia, unspecified
CPT/HCPCS: 36591; 70553; 80053; 82105; 82962; 83615; 83690; 84146; 84702; 85025; 87635; 92950; 93005; 93010; 96365; 96366; 96375; 96376; 99215; 99284; 99285; 99291; J1100; J1642; J1953; J2060

== ENCOUNTER → 2020-11-14 13:54 | Outpatient (CLI) | payer OTHER, SELFPAY ==
[2020-11-14 17:35] LABS: COVID19 -Nasal RAPID Negative (Negative)
== END ==
PROVIDERS: PCP Internal Medicine; Visit Provider Surgery
DX: Z20.822 Contact with and (suspected) exposure to COVID-19 (principal); T82.9XXA Unspecified complication of cardiac and vascular prosthetic device, implant and graft, initial encounter
CPT/HCPCS: 87635; 99214

== ENCOUNTER 2020-11-15 11:52 | Day surgery (SDC) | payer OTHER, SELFPAY ==
--- NOTE | 2020-11-15 | DI.RAD.S_ITS ---
PROCEDURE: XR CHEST 1V INDICATIONS: PORT A CATH REPLACEMENT TECHNIQUE: One view of the chest was acquired. COMPARISON: [facility], [place], [place] PET CT FUSION SKULL 2 THIGH, 06/08/2020, 13:41. Outside Facility, [place], XR CXR 1V, 03/04/2020, 23:35. FINDINGS: Surgical changes and devices: There is a Port-A-Cath on the left with the tip projecting to the left paratracheal area at the level of left posterior 4th rib. Lungs and pleura: Multiple lung masses are present bilaterally, increased in size. No pleural effusions or pneumothorax. Mediastinum: Mediastinal contours appear normal. Heart size is normal. Bones and chest wall: No suspicious bony lesions. Overlying soft tissues appear unremarkable. IMPRESSION: 1. The tip of the Port-A-Cath projects to the left paraspinous area at the level of the left posterior 4th rib. It may be within the left subclavian vein. Please confirm venous nature of the catheter clinically since the radiograph cannot definitively confirm the location of the catheter. 2. Multiple lung masses compatible with pulmonary metastases. There is interval enlargement of the masses since the last chest x-ray dated 03/04/2020. Dictated by: Ganesh Huffman M.D. on 11/15/2020 at 16:40 Approved by: Ganesh Huffman M.D. on 11/15/2020 at 16:44
[2020-11-15 12:49] VITALS: BP 145/91; PULSE 116; RESP 24; TEMP 36.4; O2SAT 98; BMI 50.5
--- NOTE | 2020-11-15 14:37 | PM.PREOP ---
Pre-operative Note Interval Note History & Physical reviewed/Exam performed by Physician: Yes Changes to H&P: No
[2020-11-15] MEDS: CEFAZOLIN 2 GM/100 ML FROZ.PIGGY IV (14:43)
[2020-11-15] MEDS: LACTATED RINGERS 1,000 ML 100 ML IV (15:00)
--- NOTE | 2020-11-15 15:04 | SUR.OPER ---
Supine on padded OR bed, head on pillow, arms secured on padded arm boards at <90 degrees abduction, legs uncrossed, safety belt at thigh, tape over blanket over lower legs.
[2020-11-15] MEDS: BUPIVACAINE 0.25% (PF) VIAL 30 ML INJ (15:20)
[2020-11-15] MEDS: HEPARIN 5,000 UNIT, SODIUM CHLORIDE 0.9% 50 ML IV (15:25)
[2020-11-15 15:56] VITALS: BP 141/81; PULSE 112; RESP 16; TEMP 37.1; O2SAT 97
--- NOTE | 2020-11-15 15:58 | P.OP_ITS ---
Operative Date/Time/Diagnoses Date of procedure: 11/15/20 Time of procedure: 15:58 Pre-op diagnosis: Dysfunctional Port-A-Cath Post-op diagnosis: same Procedure & Clinicians Procedure: Removal right chest Port-A-Cath. Placement new Port-A-Cath. Same procedure as scheduled: Yes Indications: 29-year-old male with metastatic testicular cancer here with a dysfunctional right chest Port-A-Cath which has eroded through the skin. Surgeon: Sumit Dill Anesthesia Type: General Operative Notes Findings: No gross contamination of the right chest Port-A-Cath however the port his completely eroded through the skin and is a source of potential contamination. Port-A-Cath catheter was removed intact Estimated Blood Loss (mL): 20 Procedure in detail: Patient brought to the operating room placed supine on the table. Bilateral lower extremity compression devices were applied. he received 2 g of Ancef prior to skin incision. anesthesia was induced and he was intubated with an LMA. 0.25% bupivacaine was infiltrated in the skin overlying the Port-A-Cath. A portion of the port had competely eroded through the skin. Incision with the knife was made through the skin and subcutaneous tissues. The Port-A-Cath was grasped and removed. A Vicryl suture was then placed around the insertion site of the catheter and this was tied down at that same time that the catheter was withdrawn. The specimen was passed off the field. The wound was irrigated hemostasis was achieved. The subcutaneous tissue was reapproximated using Vicryl suture and skin closed with running Monocryl suture followed by Dermabond. Under ultrasound guidance the left internal jugular vein was accessed under direct visualization. The guidewire was then threaded through the needle. Its placement was then confirmed using fluoroscopy. The dilator was then placed over the guidewire. The catheter was then inserted through the sheath. Placement was again confirmed with fluoroscopy. A subcutaneous pocket was made in the right chest wall. The tunneler device was used to move the catheter from the neck to the chest pocket. The port was attached after it was primed with heparined saline. The port was tested to ensure that it flushed easily and had good blood return. The port was then secured to the underlying fascia using interupted 0 Prolene suture. Hemostasis was achieved. The wound was irrigated with sterile saline. The subcutaneous tissues were reapproximated with the 3 0 Vicryl and then skin closed with 4-0 Monocryl. The skin was sealed with [place] ventura. Patient tolerated procedure well. The sponge and instrument count at the end operation was correct. Patient emerged from general anesthesia was extubated and taken to the postoperative care unit in stable condition Complications: none Post-operative Condition: stable Disposition: same day surgery
[2020-11-15 16:01] VITALS: BP 150/74; PULSE 110; RESP 18; O2SAT 98
[2020-11-15] MEDS: OXYCODONE/ACETAMINOPHEN 5/325 TABLET 1 TAB PO (16:04)
[2020-11-15] MEDS: ONDANSETRON 4 MG/2 ML INJ IV (16:04)
[2020-11-15 16:06] VITALS: BP 133/73; PULSE 105; RESP 12; O2SAT 96
[2020-11-15 16:16] VITALS: BP 141/79; PULSE 101; RESP 16; TEMP 37.2; O2SAT 97
== END 2020-11-15 16:39 | disposition home or self-care (01) ==
PROVIDERS: PCP Internal Medicine; Referring Provider Surgery; Visit Provider Surgery
PROC: (CPT 36561; principal; 2020-11-15 13:15)
DX: Z45.2 Encounter for adjustment and management of vascular access device (principal); T82.598A Other mechanical complication of other cardiac and vascular devices and implants, initial encounter; C62.90 Malignant neoplasm of unspecified testis, unspecified whether descended or undescended; I10 Essential (primary) hypertension; E66.9 Obesity, unspecified; Z68.43 Body mass index [BMI] 50.0-59.9, adult
CPT/HCPCS: 36561; 36590; 71045; 76000; C1788; J0330; J0690; J1100; J1644; J2250; J2405; J2704; J3010

== ENCOUNTER → 2020-11-23 15:50 | Outpatient (CLI) | payer OTHER, SELFPAY ==
--- NOTE | 2020-11-23 15:52 | DI.RAD.S_ITS ---
PROCEDURE: XR FEMUR LT MIN 2V INDICATIONS: Bilateral femur pain, metastatic cancer TECHNIQUE: 4 views of the femur were acquired. COMPARISON: None. FINDINGS: Bones: No acute fracture. No definite lytic lesion is seen. Soft tissues: No suspicious soft tissue calcifications or masses. IMPRESSION: No lytic lesion identified. If the patient's pain or other symptoms persist, consider further evaluation with contrast enhanced MRI. Dictated by: Lalo Green M.D. on 11/23/2020 at 17:48 Approved by: Lalo Green M.D. on 11/23/2020 at 17:49
--- NOTE | 2020-11-23 15:52 | DI.RAD.S_ITS ---
PROCEDURE: XR FEMUR RT MIN 2V INDICATIONS: Bilateral femur pain, metastatic cancer TECHNIQUE: 2 views of the femur were acquired. COMPARISON: None. FINDINGS: Bones: No fractures or dislocations. No suspicious bony lesions. Soft tissues: No suspicious soft tissue calcifications or masses. IMPRESSION: No visualized suspicious lesions. No visualized acute fracture or dislocation. However, if clinical concern and/or pain persist, short interval imaging followup in 7-10 days is recommended, as occult injury cannot be definitively excluded. Dictated by: Manasa Rankin M.D. on 11/23/2020 at 17:39 Approved by: Manasa Rankin M.D. on 11/23/2020 at 17:40
== END ==
PROVIDERS: PCP Internal Medicine; Referring Provider Internal Medicine; Visit Provider Internal Medicine
DX: C79.51 Secondary malignant neoplasm of bone (principal); C80.1 Malignant (primary) neoplasm, unspecified; M79.605 Pain in left leg; M79.604 Pain in right leg
CPT/HCPCS: 73552

== ENCOUNTER → 2020-12-13 09:36 | Outpatient (CLI) | payer OTHER, SELFPAY ==
--- NOTE | 2020-12-13 09:37 | DI.ECHO.S_ITS ---
[facility]---------+ [facility] +---------+ : : [address] : : [place], [place] : : : : [id number] : : : : Phone: [phone] Echocardiogram Report + + :Name: LUIS ORO Study Date: 12/13/2020 Height: 70 in : :[facility] ReadingLocation: Weight: 325 lb : : Gender: Male BSA: 2.6 m2 : :: 1990 Age: 29 yrs BP: 122/84 mmHg: :Reason For Study: TACHYCARDIA, METASTATIC GERM CELL TUMOR, : :HYPOXIA : :Ordering Physician: MATHIEU, : :LUIS EDUARDO Performed By: Irene Chaves : :Referring: LUIS EDUARDO MURDOCK : + + Interpretation Summary The study quality was technically difficult. The ejection fraction is estimated to be 45-50%. Procedure: A two-dimensional transthoracic echocardiogram with color flow and Doppler was performed. The study quality was technically difficult. The study quality was technically limited. A contrast injection of Definity was performed to improve assessment of LV function. The patient was in sinus tachycardia with heart rates between 120-127 bpm during the exam. Left Ventricle: The left ventricle is normal in size and wall thickness. The ejection fraction is estimated to be 45-50%. Regional wall motion abnormalities cannot be excluded due to limited visualization. Diastolic function could not be accurately assessed due to tachycardia. Right Ventricle: The right ventricle is grossly normal size. The right ventricular systolic function is normal. Atria: Both atria are normal in size. There is no Doppler evidence for an interatrial shunt. Mitral Valve: The mitral valve is grossly normal. There is no mitral regurgitation noted. Aortic Valve: The aortic valve is not well visualized. There is no aortic valve stenosis. No aortic regurgitation is present. Tricuspid Valve: The tricuspid valve is not well visualized, but is grossly normal. Pulmonary artery pressures cannot be estimated because of the lack of a measurable TR jet velocity but the IVC suggests a CVP of around 3 mmHg. There is trace tricuspid regurgitation. Pulmonic Valve: The pulmonic valve is not well visualized. There is no pulmonic valvular regurgitation. Great Vessels: The aortic root is not well visualized. The ascending aorta is mildly enlarged. The IVC is of normal diameter and collapses greater than 50% with a sniff. This suggests a low right atrial pressure of 3 mm Hg. Pericardium/ Pleura There is no pericardial effusion. There is no pleural effusion. MMode/2D Measurements & Calculations LVIDd: 5.1 cm LVOT diam: 3.0 cm LVIDs: 3.9 cm asc Aorta Diam: 3.6 cm FS: 24.2 % Ao Arch Diam (Prox Trans): 3.0 cm IVSd: 0.91 cm LVPWd: 0.94 cm LV hensley. diameter/BSA (cm/m^2): 2.0 LV sys. diameter/BSA (cm/m^2): 1.5 LA A2 area: 16.7 cm2 RA long axis: 4.6 cm LA A4 area: 12.3 cm2 RA area: 11.5 cm2 LA length (vol): 4.3 cm RA vol: 24.2 ml LA vol: 40.3 ml RA : 9.4 ml/m2 LA vol index: 15.7 ml/m2 IVC diam: 0.90 cm RVD1 (basal): 2.6 cm TAPSE: 1.7 cm Doppler Measurements & Calculations Ao V2 max: 186.2 cm/sec LVOT Max Twin: 117.9 cm/sec Ao V2 mean: 131.8 cm/sec LV V1 max P.6 mmHg Ao max P.9 mmHg LV V1 VTI: 17.5 cm Ao mean P.7 mmHg CASSIE(I,D): 5.5 cm2 Ao V2 VTI: 22.8 cm CASSIE(V,D): 4.6 cm2 sev ratio: 0.76 CASSIE indexed to BSA (cm^2/m^2): 2.1 Med Peak E' Twin: 6.4 cm/sec PA V2 max: 80.9 cm/sec Lat Peak E' Twin: 11.0 cm/sec PA V2 mean: 54.8 cm/sec PA mean P.4 mmHg SV(LVOT): 125.4 ml Reading Physician:01:28 PM
== END ==
PROVIDERS: PCP Internal Medicine; Referring Provider Internal Medicine Hematology & Oncology; Visit Provider Internal Medicine Hematology & Oncology
DX: C79.31 Secondary malignant neoplasm of brain; I77.89 Other specified disorders of arteries and arterioles; R06.02 Shortness of breath; C62.90 Malignant neoplasm of unspecified testis, unspecified whether descended or undescended; R00.0 Tachycardia, unspecified
CPT/HCPCS: 93306

== ENCOUNTER 2020-12-18 16:34 | Emergency (ER) | payer OTHER, SELFPAY ==
[2020-12-18] VITALS (10 sets, daily range): BP systolic 127–150; BP diastolic 66–90; PULSE 132–151; RESP 30–37; TEMP 36.3; O2SAT 89–96
--- NOTE | 2020-12-18 16:42 | ED.SOB ---
HPI - SOB/Dyspnea <Violette Wise, - Last Filed: 12/20/20 18:21> General Chief Complaint: Shortness of Breath/Dyspnea Stated Complaint: anemic, cancer patient, Dr sent in Time Seen by Provider: 12/18/20 16:42 Source: patient and family Mode of arrival: Wheelchair Limitations: no limitations History of Present Illness HPI Narrative: This is a 30-year-old male who comes to the emergency department with complaint of worsening shortness of breath as well as uncontrolled pain. Patient has no testicular cancer with metastases to the brain, lung and possibly bone metastases on his most recent scans. Patient had low O2 sats last week when he was at his Oncology office. They were started on home O2 4 L and he has continued to feel increasingly short of breath. No fevers. No chest pain or pressure that he appreciates but does feel short of breath. He denies abdominal pain. He has not had any vomiting. He has not had any changes to urination. He has chronic constipation but has been having bowel movement with stool softeners. He has pain particularly in his left lower extremity but states this is been chronic in nature but has been worsened lately. He does have a fentanyl patch, he has oxycodone for pain but they have been judicious in their use. He is on Keppra for seizures secondary to brain metastases. He is also on dexamethasone as needed. Patient denies any known drug allergies. Related Data Home Medications Medication Instructions Recorded Confirmed albuterol sulfate [ProAir HFA] 1 puff INHALATION QID 02/29/20 11/24/20 pantoprazole [Protonix] 40 mg PO DAILY 03/30/20 11/24/20 prochlorperazine maleate 10 mg PO Q6HR 03/30/20 11/24/20 multivitamin 1 cap PO DAILY 05/05/20 11/24/20 allopurinol 300 mg PO DAILY 09/15/20 11/24/20 Previous Rx's Medication Instructions Recorded ondansetron 4 - 8 mg PO Q8H PRN #60 tab 04/21/20 etoposide 100 mg PO DIRECTED #60 cap 09/29/20 zolpidem [Ambien] 10 mg PO BEDTIME PRN #30 tab 11/10/20 cephalexin 750 mg capsule 750 mg PO TID #7 cap 11/14/20 dexamethasone 4 mg PO TID #60 tab 11/17/20 levetiracetam [Keppra] 1,500 mg PO Q12H #120 tab 11/17/20 lorazepam [Ativan] 1 mg PO TID PRN #60 tab 12/05/20 diazepam 5 mg PO QD-BID PRN #20 tab 12/08/20 gabapentin 100 mg PO TID #90 cap 12/08/20 fentanyl 1 patch TRANSDERMAL Q72H #10 ea 12/12/20 oxycodone 20 - 40 mg PO Q3-4H PRN #250 ea 12/13/20 oxycodone 20 mg PO Q3-4H PRN #200 tab 12/13/20 carvedilol [Coreg] 3.125 mg PO BID #30 tab 12/18/20 Allergies Allergy/AdvReac Type Severity Reaction Status Date / Time No Known Drug Allergies Allergy Verified 11/14/20 13:57 Review of Systems <Violette Wise DO - Last Filed: 12/20/20 18:21> Review of Systems ROS Unobtainable: All systems reviewed & are unremarkable except as noted in HPI and below Patient History <Violette Wise DO - Last Filed: 12/20/20 18:21> Medical History Cough Hypertension (~2019) Malaise and fatigue Numbness and tingling Obesity Shortness of breath Testicular cancer Vision changes Social History marital status: household members: spouse and children Smoking Status: Never smoker alcohol intake: current substance use type: does not use Smoking Status: Never smoker alcohol intake frequency: a few times a week Alcohol type: beer Substance Use Type: painkillers Exam <Violette Wise DO - Last Filed: 12/20/20 18:21> Narrative Exam Narrative: GENERAL: Alert and oriented x three, obese male in moderate distress. HEENT: Head normocephalic, atraumatic, patient has raised lesion on left forehead that is 2cm in size, EOMI, pupils reactive, face symmetric, moist mucous membranes NECK: Supple, full range of motion CARDIOVASCULAR: Tachycardic but Regular rate and rhythm without murmurs, rubs or gallops. RESPIRATORY: Breath sounds equal bilaterally, no wheezes rales or rhonchi. Positive for tachypnea. Speaks in 5-6 word sentences. ABDOMEN: Soft, nontender. Normoactive bowel sounds all 4 quadrants. No guarding or rebound, rigidity, no mass : No CVA tenderness EXTREMITIES: Normal range of motion, no clubbing or edema of lower extremities noted. No warmth, erythema other skin changes noted. Neurovascularly intact NEUROLOGICAL: Cranial nerves II through XII grossly intact. Moving all extremities SKIN: Warm, dry, no petechiae, no rashes or lesions. Patient does have few small areas of ecchymosis on his lower extremity. Initial Vital Signs Initial Vital Signs: Vital Signs Temperature 97.4 F L 12/18/20 16:44 Pulse Rate 151 H 12/18/20 16:44 Respiratory Rate 30 H 12/18/20 16:44 Blood Pressure 147/90 H 12/18/20 16:44 Pulse Oximetry 93 12/18/20 16:44 <Amor Painting DO - Last Filed: 12/18/20 20:39> Initial Vital Signs Initial Vital Signs: Vital Signs Temperature 97.4 F L 12/18/20 16:44 Pulse Rate 151 H 12/18/20 16:44 Respiratory Rate 30 H 12/18/20 16:44 Blood Pressure 147/90 H 12/18/20 16:44 Pulse Oximetry 93 12/18/20 16:44 Scores <Violette Wise DO - Last Filed: 12/20/20 18:21> GCS Susan coma scale eye opening: Spontaneous Susan coma scale verbal response: Orientated Susan coma scale motor response: Obey commands [place] coma scale total score: 15 Course <Violette Wise DO - Last Filed: 12/20/20 18:21> Orders Ordered: Discontinued Medications Carvedilol (Carvedilol 3.125 Mg Tablet) 3.125 mg PO NOW ONE Stop: 12/18/20 19:47 Last Admin: 12/18/20 20:06 Dose: 3.125 mg Documented by: DAMASO Carvedilol (Carvedilol 3.125 Mg Tablet) 3.125 mg PO NOW ONE Stop: 12/18/20 20:35 Last Admin: 12/18/20 20:38 Dose: 3.125 mg Documented by: DAMASO Diazepam (Diazepam 5 Mg Tablet) 10 mg PO NOW ONE Stop: 12/18/20 18:04 Last Admin: 12/18/20 18:20 Dose: 5 mg Documented by: ELBERT Heparin Sodium (Porcine) (Heparin 500 Unit/5 Ml Port Flush) 500 unit IV PRN PRN PRN Reason: Flush Hydromorphone HCl (Hydromorphone 1 Mg Inj) 1 mg IV NOW ONE Stop: 12/18/20 16:52 Last Admin: 12/18/20 17:06 Dose: 1 mg Documented by: REESE Hydromorphone HCl (Hydromorphone 0.5 Mg Inj) 0.5 mg IV NOW ONE Stop: 12/18/20 17:23 Last Admin: 12/18/20 17:25 Dose: 0.5 mg Documented by: ELBERT Hydromorphone HCl (Hydromorphone 1 Mg Inj) 1.5 mg IV NOW ONE Stop: 12/18/20 20:24 Last Admin: 12/18/20 20:27 Dose: 1.5 mg Documented by: DAMASO Sodium Chloride (Normal Saline 0.9%) 1,000 mls @ 150 mls/hr IV CONT JUSTIN Sodium Chloride (Normal Saline 0.9%) 1,000 mls @ 1,000 mls/hr IV BOLUS ONE Stop: 12/18/20 17:55 Last Infusion: 12/18/20 20:10 Dose: 0 mls/hr Documented by: Admin: 12/18/20 17:06 Dose: 1,000 mls/hr Documented by: REESE Consultations Consultation #1: Dr. Alan, he recommends adding a TSH on for patient. He states that there are some possibilities that immune therapy can cause a myocarditis. We discussed possible options at this time patient prefers to return home. He does appear to have persistent tachycardia over the last year or more. He does not look well and he has been having increasing need for O2 this may be secondary to his increasing metastases in his lungs prevent Ng transfer of oxygen through the alveoli. There is no obvious large PE but cannot rule out very small PEs. We also discussed the possibility of patient being transferred to [facility] so that he can receive his palliative radiation as well as further evaluation by Cardiology but patient ultimately decided to return home. He will contact Dr. Leal directly to assist patient to see Cardiology in the short term as he does have an indeterminate troponin elevation in his BNP. He also recommends starting carvedilol 3.125 mg b.i.d. in the interim. Vital Signs Vital signs: Vital Signs - 8 hr 12/18/20 16:44 12/18/20 16:54 12/18/20 17:00 Temperature 97.4 F L Pulse Rate 151 H 145 H 140 H Respiratory Rate 30 H 35 H 37 H Blood Pressure 147/90 H Pulse Oximetry 93 95 96 12/18/20 17:16 12/18/20 17:45 12/18/20 17:53 Temperature Pulse Rate 139 H 142 H 138 H Respiratory Rate 36 H 31 H Blood Pressure 150/81 H 150/66 H Pulse Oximetry 95 89 L 91 12/18/20 18:00 12/18/20 18:30 12/18/20 19:00 Temperature Pulse Rate 137 H 132 H 138 H Respiratory Rate 33 H Blood Pressure 138/72 132/72 139/86 Pulse Oximetry 92 91 91 12/18/20 19:30 Temperature Pulse Rate 135 H Respiratory Rate Blood Pressure 127/83 Pulse Oximetry 92 <Amor Painting DO - Last Filed: 12/18/20 20:39> Course Course Narrative: patient received in sign out from bernard Mendoza waiting on TSH. Patient and still prefer to go home and meet with Palliative Care nurse in the AM. They have been given return precautions and have had questions answered to their apparent satisfaction. Upon completion of TSH I called Dr. Bowens (Oncology) to relay findings and patient decision to go home. He will relay this message to Dr. Leal Orders Ordered: Discontinued Medications Carvedilol (Carvedilol 3.125 Mg Tablet) 3.125 mg PO NOW ONE Stop: 12/18/20 19:47 Last Admin: 12/18/20 20:06 Dose: 3.125 mg Documented by: DAMASO Carvedilol (Carvedilol 3.125 Mg Tablet) 3.125 mg PO NOW ONE Stop: 12/18/20 20:35 Last Admin: 12/18/20 20:38 Dose: 3.125 mg Documented by: DAMASO Diazepam (Diazepam 5 Mg Tablet) 10 mg PO NOW ONE Stop: 12/18/20 18:04 Last Admin: 12/18/20 18:20 Dose: 5 mg Documented by: ELBERT Heparin Sodium (Porcine) (Heparin 500 Unit/5 Ml Port Flush) 500 unit IV PRN PRN PRN Reason: Flush Hydromorphone HCl (Hydromorphone 1 Mg Inj) 1 mg IV NOW ONE Stop: 12/18/20 16:52 Last Admin: 12/18/20 17:06 Dose: 1 mg Documented by: REESE Hydromorphone HCl (Hydromorphone 0.5 Mg Inj) 0.5 mg IV NOW ONE Stop: 12/18/20 17:23 Last Admin: 12/18/20 17:25 Dose: 0.5 mg Documented by: ELBERT Hydromorphone HCl (Hydromorphone 1 Mg Inj) 1.5 mg IV NOW ONE Stop: 12/18/20 20:24 Last Admin: 12/18/20 20:27 Dose: 1.5 mg Documented by: DAMASO Sodium Chloride (Normal Saline 0.9%) 1,000 mls @ 150 mls/hr IV CONT JUSTIN Sodium Chloride (Normal Saline 0.9%) 1,000 mls @ 1,000 mls/hr IV BOLUS ONE Stop: 12/18/20 17:55 Last Infusion: 12/18/20 20:10 Dose: 0 mls/hr Documented by: Admin: 12/18/20 17:06 Dose: 1,000 mls/hr Documented by: REESE Vital Signs Vital signs: Vital Signs - 8 hr 12/18/20 16:44 12/18/20 16:54 12/18/20 17:00 Temperature 97.4 F L Pulse Rate 151 H 145 H 140 H Respiratory Rate 30 H 35 H 37 H Blood Pressure 147/90 H Pulse Oximetry 93 95 96 12/18/20 17:16 12/18/20 17:45 12/18/20 17:53 Temperature Pulse Rate 139 H 142 H 138 H Respiratory Rate 36 H 31 H Blood Pressure 150/81 H 150/66 H Pulse Oximetry 95 89 L 91 12/18/20 18:00 12/18/20 18:30 12/18/20 19:00 Temperature Pulse Rate 137 H 132 H 138 H Respiratory Rate 33 H Blood Pressure 138/72 132/72 139/86 Pulse Oximetry 92 91 91 12/18/20 19:30 Temperature Pulse Rate 135 H Respiratory Rate Blood Pressure 127/83 Pulse Oximetry 92 MDM - SOB/Dyspnea <Violette Wise, DO - Last Filed: 12/20/20 18:21> Lab Data Attestation: I reviewed the patient's lab results. Result diagrams: 12/18/20 17:50 12/18/20 17:50 Labs: Lab Results 12/18/20 12/18/20 12/18/20 Range/Units 17:16 17:50 17:50 WBC 12.3 H (4.5-11.0) X10^3/uL RBC 3.15 L (4.5-5.9) X10^6/uL Hgb 8.9 L (13.5-17.5) g/dL Hct 27.6 L (41-53) % MCV 87.9 (80-100) fL MCH 28.2 (26-34) PG MCHC 32.1 (30-36) % RDW 23.5 H (11.6-14.8) % Plt Count 86 L (150-400) X10^3/uL Neut % (Auto) 88.5 H (50-75) % Lymph % (Auto) 2.3 L (25-40) % [place] % (Auto) 9.0 (3-14) % Eos % (Auto) 0.1 L (2-4) % Baso % (Auto) 0.1 (0-2) % Neut # (Auto) 16269 H (3135-7638) /uL Lymph # (Auto) 300 L (0082-7468) /uL [place] # (Auto) 1100 H (0-900) /uL Eos # (Auto) 0 (0-450) /uL Baso # (Auto) 0 (0-100) /uL RBC Morphology See below Polychromasia 1+ H Poikilocytosis 1+ H Anisocytosis 2+ H PT 19.9 H (10.1-12.7) SECONDS INR 1.7 H (0.9-1.3) APTT 28 (26.4-36.2) SECONDS Sodium (137-145) mmol/L Potassium (3.4-5.1) mmol/L Chloride (98-107) mmol/L Carbon Dioxide (22-32) mmol/L BUN (9-20) mg/dL Creatinine (0.66-1.25) mg/dL Estimated GFR (>60) mL/min BUN/Creatinine Ratio (6-22) Glucose (70-100) mg/dL Lactate (0.7-2.1) mmol/L Calcium (8.4-10.2) mg/dL Magnesium (1.6-2.3) mg/dL Total Bilirubin (0.2-1.3) mg/dL AST (17-59) IU/L ALT (<50) IU/L Alkaline Phosphatase (38-126) U/L Total Creatine Kinase (55-170) U/L CK-MB (CK-2) CK-MB (CK-2) Rel Index Troponin I (0.01-0.034) ng/mL NT-Pro-B Natriuret Pep (<125) pg/mL Total Protein (6.3-8.2) g/dL Albumin (3.5-5.0) g/dL Globulin (1.7-4.1) g/dL Albumin/Globulin Ratio (1.0-2.8) Procalcitonin (<0.5) ng/mL TSH (0.47-4.68) uIU/mL SARS-CoV-2 (PCR) Negative (Negative) 12/18/20 12/18/20 12/18/20 Range/Units 17:50 17:50 17:50 WBC (4.5-11.0) X10^3/uL RBC (4.5-5.9) X10^6/uL Hgb (13.5-17.5) g/dL Hct (41-53) % MCV (80-100) fL MCH (26-34) PG MCHC (30-36) % RDW (11.6-14.8) % Plt Count (150-400) X10^3/uL Neut % (Auto) (50-75) % Lymph % (Auto) (25-40) % [place] % (Auto) (3-14) % Eos % (Auto) (2-4) % Baso % (Auto) (0-2) % Neut # (Auto) (8178-0470) /uL Lymph # (Auto) (2153-1310) /uL [place] # (Auto) (0-900) /uL Eos # (Auto) (0-450) /uL Baso # (Auto) (0-100) /uL RBC Morphology Polychromasia Poikilocytosis Anisocytosis PT (10.1-12.7) SECONDS INR (0.9-1.3) APTT (26.4-36.2) SECONDS Sodium 133 L (137-145) mmol/L Potassium 3.9 (3.4-5.1) mmol/L Chloride 102 (98-107) mmol/L Carbon Dioxide 26 (22-32) mmol/L BUN 14 (9-20) mg/dL Creatinine 0.62 L (0.66-1.25) mg/dL Estimated GFR > 60.0 (>60) mL/min BUN/Creatinine Ratio 22.6 H (6-22) Glucose 101 H (70-100) mg/dL Lactate 1.7 (0.7-2.1) mmol/L Calcium 8.2 L (8.4-10.2) mg/dL Magnesium 1.8 (1.6-2.3) mg/dL Total Bilirubin 0.9 (0.2-1.3) mg/dL AST 117 H (17-59) IU/L ALT 26 (<50) IU/L Alkaline Phosphatase 134 H (38-126) U/L Total Creatine Kinase 60 (55-170) U/L CK-MB (CK-2) TNP CK-MB (CK-2) Rel Index TNP Troponin I 0.040 H (0.01-0.034) ng/mL NT-Pro-B Natriuret Pep 1020 H (<125) pg/mL Total Protein 5.7 L (6.3-8.2) g/dL Albumin 2.6 L (3.5-5.0) g/dL Globulin 3.1 (1.7-4.1) g/dL Albumin/Globulin Ratio 0.8 L (1.0-2.8) Procalcitonin 0.84 H (<0.5) ng/mL TSH 0.175 L D (0.47-4.68) uIU/mL SARS-CoV-2 (PCR) (Negative) Imaging Data Chest x-ray: Radiologist's Impression: [address] [id number] ReportSigned Patient: Keny Hampton EMR#: [id number]: 1990Acct:[id number]/Sex: 30 / MDate of Service: 12/18/20Loc: EDAccession Number: [id number] Procedure: XR chest 1V Ordering Provider: Violette Wise D.O. PROCEDURE: XR CHEST 1V INDICATIONS: sob, testicular ca with mets to lung/brain TECHNIQUE: One view of the chest was acquired. COMPARISON: [facility], CT, CT ANGIO CHEST PE PROTOCOL, 03/02/2020, 20:07. Outside Film, CT, CT ANGIO CHEST PE, 03/02/2020, 20:07. [facility], CR, XR CHEST 1V, 11/15/2020, 16:14. FINDINGS: Surgical changes and devices: Relatively unchanged appearance of christina catheter on the left with the tip projecting over the right paratracheal region overlying the 4th rib. Questionable kinking of the proximal tube is unchanged. Lungs and pleura: Multiple masses and nodules throughout the lungs are increased in size and number from comparison exam. Mediastinum: Mediastinal contours appear normal. Heart size is normal. Bones and chest wall: No acute osseous abnormality. Overlying soft tissues appear unremarkable. IMPRESSION: Increased size and number of multiple lung masses/nodules from prior examination consistent with known metastatic disease. Relatively unchanged appearance of the christina catheter with tip overlying the right paratracheal region at the level of the 4th rib. In addition there is questionable kinking of the proximal aspect. Dictated by: on 12/18/2020 at 16:05 Approved by: on 12/18/2020 at 16:12 CT scan - chest: Radiologist's Impression: [address] [id number] Scan ReportSigned Patient: Keny Hampton EMR#: [id number]: 1990Acct:[id number]/Sex: 30 / MDate of Service: 12/18/20Loc: EDAccession Number: [id number] Procedure: CT angio chest PE protocol Ordering Provider: Violette Wise D.O. PROCEDURE: CT ANGIO CHEST PE PROTOCOL INDICATIONS: increased sob, testicular ca mets vs. PE TECHNIQUE: After the administration of intravenous contrast, 2 mm thick sections acquired from the pulmonary apices to the posterior costophrenic angles. 3-dimensional maximum intensity projection (MIP) coronal and sagittal reformats were then acquired through the thorax. For radiation dose reduction, the following was used: automated exposure control, adjustment of mA and/or kV according to patient size. COMPARISON: Outside Film, CT, CT ANGIO CHEST PE, 03/02/2020, 20:07. [facility], , CT CHEST/ABD/PEL W/CONTRAST, 02/22/2020, 12:17. [facility], CT, CT ANGIO CHEST PE PROTOCOL, 03/02/2020, 20:07. FINDINGS: Image quality: Excellent. Pulmonary arteries: Bolus timing limits evaluation of pulmonary embolus within the distal segmental and subsegmental vessels. There is no central pulmonary embolus. Lungs and pleura: Innumerable pulmonary nodules/masses are noted throughout the lungs increased in size and number from comparison exam. There is small left greater than right pleural effusions. The airways are grossly intact. There is mass effect from multiple masses. Mediastinum: Heart size is normal, without pericardial effusion. No evidence of right heart strain. Marked mediastinal and hilar adenopathy progressed from prior exam. Thoracic aorta is normal in caliber and enhancement. Esophagus is normal in caliber, without hiatal hernia. Bones and chest wall: No suspicious bony lesions. Ribs and thoracic spine appear intact throughout. Thyroid gland is unremarkable. No axillary or supraclavicular adenopathy. Abdomen: Limited evaluation of the upper abdomen demonstrates multiple low-density hepatic lesions most consistent with metastatic disease. Multiple splenic lesions are noted most consistent with metastatic disease. The pancreas is unremarkable. Adrenal glands are unremarkable. The gallbladder is unremarkable. Imaged bowel is unremarkable. IMPRESSION: Limited exam for pulmonary embolus given bolus. No central pulmonary embolus. No evidence of right heart strain. Consider repeat if clinically warranted. Diffuse metastatic disease with innumerable pulmonary nodules/masses increased from prior examination. In addition there is increased mediastinal/hilar adenopathy as well as innumerable hepatic and splenic masses. Small left greater than right pleural effusions. Dictated by: on 12/18/2020 at 16:57 Approved by: on 12/18/2020 at 17:09 [facility] Narrative Medical decision making narrative: This is a 30-year-old male who comes emergency department with increasing shortness of breath, difficulty with controlling pain at home. Patient has no testicular cancer with metastases to the brain as well as lungs. On imaging today he has worsening metastases in his lungs. He does not have a large pulmonary embolism on CT imaging. Patient has been tachycardic in the department but according to his prior EKGs as well as fairly recent echo this has been persistent. He has had increasing need for O2 which started in the last week. Patient, myself in his bowels all had a very clear discussion about goals of care. Discussed that it would be my recommendation that patient be admitted for further evaluation as he does have an elevation his troponin, BNP with this persistent tachycardia and hypoxia. Patient would likely benefit from being transferred elsewhere. He is supposed to start palliative radiation tomorrow at every it as the location as they have table that can accommodate the patient's weight. We discussed trying to transfer him to [place] but after they reviewed the Hospitals visitation policy he politely refuses as he does not wish to be without his spouse. Patient does have a palliative nurse arriving in the morning at approximately 9:15 a.m. and we discussed that they can assist with O2 requirements. His case was also discussed with his oncology team and they will help to have patient evaluated by Cardiology as he there some possibility of an immune related myocarditis. Dr. Alan did recommend carvedilol 3.125 mg twice daily to assist with patient's tachycardia. Discussed with patient that there is a definite risk of decompensation and potentially at home and they are aware this. Patient was signed out to Dr. Painting while awaiting TSH with plan for discharge home. <Amor Painting, DO - Last Filed: 12/18/20 20:39> Lab Data Labs: Lab Results 12/18/20 12/18/20 12/18/20 Range/Units 17:16 17:50 17:50 WBC 12.3 H (4.5-11.0) X10^3/uL RBC 3.15 L (4.5-5.9) X10^6/uL Hgb 8.9 L (13.5-17.5) g/dL Hct 27.6 L (41-53) % MCV 87.9 (80-100) fL MCH 28.2 (26-34) PG MCHC 32.1 (30-36) % RDW 23.5 H (11.6-14.8) % Plt Count 86 L (150-400) X10^3/uL Neut % (Auto) 88.5 H (50-75) % Lymph % (Auto) 2.3 L (25-40) % [place] % (Auto) 9.0 (3-14) % Eos % (Auto) 0.1 L (2-4) % Baso % (Auto) 0.1 (0-2) % Neut # (Auto) 27180 H (7794-8629) /uL Lymph # (Auto) 300 L (4590-8735) /uL [place] # (Auto) 1100 H (0-900) /uL Eos # (Auto) 0 (0-450) /uL Baso # (Auto) 0 (0-100) /uL RBC Morphology See below Polychromasia 1+ H Poikilocytosis 1+ H Anisocytosis 2+ H PT 19.9 H (10.1-12.7) SECONDS INR 1.7 H (0.9-1.3) APTT 28 (26.4-36.2) SECONDS Sodium (137-145) mmol/L Potassium (3.4-5.1) mmol/L Chloride (98-107) mmol/L Carbon Dioxide (22-32) mmol/L BUN (9-20) mg/dL Creatinine (0.66-1.25) mg/dL Estimated GFR (>60) mL/min BUN/Creatinine Ratio (6-22) Glucose (70-100) mg/dL Lactate (0.7-2.1) mmol/L Calcium (8.4-10.2) mg/dL Magnesium (1.6-2.3) mg/dL Total Bilirubin (0.2-1.3) mg/dL AST (17-59) IU/L ALT (<50) IU/L Alkaline Phosphatase (38-126) U/L Total Creatine Kinase (55-170) U/L CK-MB (CK-2) CK-MB (CK-2) Rel Index Troponin I (0.01-0.034) ng/mL NT-Pro-B Natriuret Pep (<125) pg/mL Total Protein (6.3-8.2) g/dL Albumin (3.5-5.0) g/dL Globulin (1.7-4.1) g/dL Albumin/Globulin Ratio (1.0-2.8) Procalcitonin (<0.5) ng/mL TSH (0.47-4.68) uIU/mL SARS-CoV-2 (PCR) Negative (Negative) 12/18/20 12/18/20 12/18/20 Range/Units 17:50 17:50 17:50 WBC (4.5-11.0) X10^3/uL RBC (4.5-5.9) X10^6/uL Hgb (13.5-17.5) g/dL Hct (41-53) % MCV (80-100) fL MCH (26-34) PG MCHC (30-36) % RDW (11.6-14.8) % Plt Count (150-400) X10^3/uL Neut % (Auto) (50-75) % Lymph % (Auto) (25-40) % [place] % (Auto) (3-14) % Eos % (Auto) (2-4) % Baso % (Auto) (0-2) % Neut # (Auto) (3841-5638) /uL Lymph # (Auto) (8405-2445) /uL [place] # (Auto) (0-900) /uL Eos # (Auto) (0-450) /uL Baso # (Auto) (0-100) /uL RBC Morphology Polychromasia Poikilocytosis Anisocytosis PT (10.1-12.7) SECONDS INR (0.9-1.3) APTT (26.4-36.2) SECONDS Sodium 133 L (137-145) mmol/L Potassium 3.9 (3.4-5.1) mmol/L Chloride 102 (98-107) mmol/L Carbon Dioxide 26 (22-32) mmol/L BUN 14 (9-20) mg/dL Creatinine 0.62 L (0.66-1.25) mg/dL Estimated GFR > 60.0 (>60) mL/min BUN/Creatinine Ratio 22.6 H (6-22) Glucose 101 H (70-100) mg/dL Lactate 1.7 (0.7-2.1) mmol/L Calcium 8.2 L (8.4-10.2) mg/dL Magnesium 1.8 (1.6-2.3) mg/dL Total Bilirubin 0.9 (0.2-1.3) mg/dL AST 117 H (17-59) IU/L ALT 26 (<50) IU/L Alkaline Phosphatase 134 H (38-126) U/L Total Creatine Kinase 60 (55-170) U/L CK-MB (CK-2) TNP CK-MB (CK-2) Rel Index TNP Troponin I 0.040 H (0.01-0.034) ng/mL NT-Pro-B Natriuret Pep 1020 H (<125) pg/mL Total Protein 5.7 L (6.3-8.2) g/dL Albumin 2.6 L (3.5-5.0) g/dL Globulin 3.1 (1.7-4.1) g/dL Albumin/Globulin Ratio 0.8 L (1.0-2.8) Procalcitonin 0.84 H (<0.5) ng/mL TSH 0.175 L D (0.47-4.68) uIU/mL SARS-CoV-2 (PCR) (Negative) Discharge Plan Departure Patient Disposition: Home Clinical Impression: Lung metastases, Hypoxia Activity Restrictions/Additional Instructions: Follow up with your oncologist tomorrow and your palliative nurse in the morning. Your labs reflect the your heart is currently stressed this is likely from the hypoxia or low oxygen level. Your heart rate has been persistently high over the last year but Dr. Crystal Painter is concerned about possible myocarditis and would like for you to follow-up with cardiology since we are not transferring you to [place] Take Coreg 3.125mg every 12 hours. Prescription to [facility] in [place] Continue your other home medications as prescribed. Please return at any time if you are having fevers, increasing shortness of breath, uncontrolled pain, new chest pain, passing out, persistent vomiting or other new or concerning symptoms. Prescriptions: New carvedilol [Coreg] 3.125 mg tablet 3.125 mg PO BID Qty: 30 RF: 0 No Action cephalexin [Keflex] 750 mg capsule 750 mg PO TID Qty: 7 RF: 0 albuterol sulfate [ProAir HFA] 90 mcg/actuation Hfa Aerosol Inhaler 1 puff INHALATION QID RF: 0 pantoprazole [Protonix] 40 mg Tablet,Delayed Release (Dr/Ec) 40 mg PO DAILY RF: 0 prochlorperazine maleate 10 mg tablet 10 mg PO Q6HR RF: 0 ondansetron 4 mg Tablet,Disintegrating 4 - 8 mg PO Q8H PRN (Reason: Nausea And Vomiting) Qty: 60 RF: 0 multivitamin Capsule 1 cap PO DAILY RF: 0 allopurinol 300 mg Tablet 300 mg PO DAILY RF: 0 etoposide 50 mg Capsule 100 mg PO DIRECTED Qty: 60 RF: 11 zolpidem [Ambien] 10 mg Tablet 10 mg PO BEDTIME PRN (Reason: Insomnia) Qty: 30 RF: 3 levetiracetam [Keppra] 750 mg Tablet 1,500 mg PO Q12H Qty: 120 RF: 11 dexamethasone 4 mg Tablet 4 mg PO TID Qty: 60 RF: 0 lorazepam [Ativan] 1 mg Tablet 1 mg PO TID PRN (Reason: seizure prn) Qty: 60 RF: 0 gabapentin 100 mg Capsule 100 mg PO TID Qty: 90 RF: 2 diazepam 5 mg Tablet 5 mg PO QD-BID PRN (Reason: for seizure activity) Qty: 20 RF: 0 fentanyl 100 mcg/hr Patch 72 Hour 1 patch TRANSDERMAL Q72H Qty: 10 RF: 0 oxycodone 20 mg Tablet 20 mg PO Q3-4H PRN (Reason: metastatic testicular cancer, severe muscle pain) Qty: 200 RF: 0 oxycodone 10 mg/0.5 mL Syringe 20 - 40 mg PO Q3-4H PRN (Reason: Pain (Scale Score 7-10)) Qty: 250 RF: 0 Referrals: Mayte Walsh MD [Primary Care Provider] -
--- NOTE | 2020-12-18 16:50 | DI.RAD.S_ITS ---
PROCEDURE: XR CHEST 1V INDICATIONS: sob, testicular ca with mets to lung/brain TECHNIQUE: One view of the chest was acquired. COMPARISON: [facility], CT, CT ANGIO CHEST PE PROTOCOL, 03/02/2020, 20:07. [facility], CT, CT ANGIO CHEST PE, 03/02/2020, 20:07. [facility], CR, XR CHEST 1V, 11/15/2020, 16:14. FINDINGS: Surgical changes and devices: Relatively unchanged appearance of christina catheter on the left with the tip projecting over the right paratracheal region overlying the 4th rib. Questionable kinking of the proximal tube is unchanged. Lungs and pleura: Multiple masses and nodules throughout the lungs are increased in size and number from comparison exam. Mediastinum: Mediastinal contours appear normal. Heart size is normal. Bones and chest wall: No acute osseous abnormality. Overlying soft tissues appear unremarkable. IMPRESSION: Increased size and number of multiple lung masses/nodules from prior examination consistent with known metastatic disease. Relatively unchanged appearance of the christina catheter with tip overlying the right paratracheal region at the level of the 4th rib. In addition there is questionable kinking of the proximal aspect. Dictated by: on 12/18/2020 at 16:05 Approved by: on 12/18/2020 at 16:12
--- NOTE | 2020-12-18 17:03 | DI.CT.S_ITS ---
PROCEDURE: CT ANGIO CHEST PE PROTOCOL INDICATIONS: increased sob, testicular ca mets vs. PE TECHNIQUE: After the administration of intravenous contrast, 2 mm thick sections acquired from the pulmonary apices to the posterior costophrenic angles. 3-dimensional maximum intensity projection (MIP) coronal and sagittal reformats were then acquired through the thorax. For radiation dose reduction, the following was used: automated exposure control, adjustment of mA and/or kV according to patient size. COMPARISON: [facility], CT, CT ANGIO CHEST PE, 03/02/2020, 20:07. [facility], , CT CHEST/ABD/PEL W/CONTRAST, 02/22/2020, 12:17. [facility], CT, CT ANGIO CHEST PE PROTOCOL, 03/02/2020, 20:07. FINDINGS: Image quality: Excellent. Pulmonary arteries: Bolus timing limits evaluation of pulmonary embolus within the distal segmental and subsegmental vessels. There is no central pulmonary embolus. Lungs and pleura: Innumerable pulmonary nodules/masses are noted throughout the lungs increased in size and number from comparison exam. There is small left greater than right pleural effusions. The airways are grossly intact. There is mass effect from multiple masses. Mediastinum: Heart size is normal, without pericardial effusion. No evidence of right heart strain. Marked mediastinal and hilar adenopathy progressed from prior exam. Thoracic aorta is normal in caliber and enhancement. Esophagus is normal in caliber, without hiatal hernia. Bones and chest wall: No suspicious bony lesions. Ribs and thoracic spine appear intact throughout. Thyroid gland is unremarkable. No axillary or supraclavicular adenopathy. Abdomen: Limited evaluation of the upper abdomen demonstrates multiple low-density hepatic lesions most consistent with metastatic disease. Multiple splenic lesions are noted most consistent with metastatic disease. The pancreas is unremarkable. Adrenal glands are unremarkable. The gallbladder is unremarkable. Imaged bowel is unremarkable. IMPRESSION: Limited exam for pulmonary embolus given bolus. No central pulmonary embolus. No evidence of right heart strain. Consider repeat if clinically warranted. Diffuse metastatic disease with innumerable pulmonary nodules/masses increased from prior examination. In addition there is increased mediastinal/hilar adenopathy as well as innumerable hepatic and splenic masses. Small left greater than right pleural effusions. Dictated by: on 12/18/2020 at 16:57 Approved by: on 12/18/2020 at 17:09
[2020-12-18] MEDS: SODIUM CHLORIDE 0.9% 1,000 ML 1000 ML IV (17:06)
[2020-12-18] MEDS: HYDROMORPHONE 1 MG INJ IV (17:06)
--- NOTE | 2020-12-18 17:21 | PC.NURSE ---
Pt has been dx with metastatic testicular cancer
[2020-12-18] MEDS: HYDROMORPHONE 0.5 MG INJ IV (17:25)
[2020-12-18 17:43] LABS: COVID19 -Nasal RAPID Negative (Negative)
[2020-12-18] MEDS: diazePAM 5 MG TABLET 10 MG PO (18:20)
[2020-12-18 18:21] LABS: Add Manual Diff / Slide Review NO; Basophils Absolute Auto 0 /uL (0-100); Basophils Percent Auto 0.1 % (0-2); Eosinophils Absolute Auto 0 /uL (0-450); Eosinophils Percent Auto 0.1 % (2-4); Hematocrit 27.6 % (41-53); Hemoglobin 8.9 g/dL (13.5-17.5); Lymphocytes Absolute Auto 300 /uL (1100-4500); Lymphocytes Percent Auto 2.3 % (25-40); Mean Corpuscular HGB Conc 32.1 % (30-36); Mean Corpuscular Hemoglobin 28.2 PG (26-34); Mean Corpuscular Volume 87.9 fL (80-100); Monocytes Absolute Auto 1100 /uL (0-900); Neutrophils Absolute Auto 10900 /uL (1500-7000); Neutrophils Percent Auto 88.5 % (50-75); Platelet Count 86 X10^3/uL (150-400); Red Blood Cell Count 3.15 X10^6/uL (4.5-5.9); Red Cell Distribution Width 23.5 % (11.6-14.8); White Blood Cell Count 12.3 X10^3/uL (4.5-11.0)
[2020-12-18 18:28] LABS: INR 1.7 (0.9-1.3); Prothrombin Time 19.9 SECONDS (10.1-12.7)
[2020-12-18 18:31] LABS: PTT Partial Thromboplastin Tim 28 SECONDS (26.4-36.2)
[2020-12-18 18:35] LABS: Lactate (Lactic Acid) 1.7 mmol/L (0.7-2.1)
[2020-12-18 18:37] LABS: Alanine Aminotransferase 26 IU/L (<50); Albumin 2.6 g/dL (3.5-5.0); Albumin Globulin Ratio 0.8 (1.0-2.8); Alkaline Phosphatase 134 U/L (38-126); Aspartate Aminotransferase 117 IU/L (17-59); BUN Creatinine Ratio 22.6 (6-22); Bilirubin Total 0.9 mg/dL (0.2-1.3); Blood Urea Nitrogen 14 mg/dL (9-20); Calcium 8.2 mg/dL (8.4-10.2); Carbon Dioxide 26 mmol/L (22-32); Chloride 102 mmol/L (98-107); Creatine Kinase 60 U/L (55-170); Estimated Glomerular Filt Rate > 60.0 mL/min (>60); Globulin 3.1 g/dL (1.7-4.1); Glucose 101 mg/dL (70-100); HEMOLYSIS < 15 (0-50); Magnesium 1.8 mg/dL (1.6-2.3); Potassium 3.9 mmol/L (3.4-5.1); Sodium 133 mmol/L (137-145); Total Protein 5.7 g/dL (6.3-8.2)
[2020-12-18 18:42] LABS: Anisocytosis 2+; Poikilocytosis 1+; Polychromasia 1+
[2020-12-18 18:48] LABS: NT-proBNP (BNP-Adult 18+) 1020 pg/mL (<125)
[2020-12-18 18:53] LABS: Procalcitonin 0.84 ng/mL (<0.5)
[2020-12-18 19:58] LABS: Thyroid Stimulating Hormone 0.175 uIU/mL (0.47-4.68)
[2020-12-18] MEDS: carvediloL 3.125 MG TABLET PO ×2 (20:06→20:38)
[2020-12-18] MEDS: HYDROMORPHONE 1 MG INJ 1.5 MG IV (20:27)
== END 2020-12-18 20:47 | disposition home or self-care (01) ==
PROVIDERS: Emergency Medicine; Emergency Provider Emergency Medicine; PCP Internal Medicine
DX: C78.00 Secondary malignant neoplasm of unspecified lung (principal); R09.02 Hypoxemia; Z20.822 Contact with and (suspected) exposure to COVID-19
CPT/HCPCS: 36415; 71045; 71275; 80053; 82550; 83605; 83735; 83880; 84145; 84443; 84484; 85025; 85610; 85730; 87040; 87635; 93005; 93010; 96361; 96374; 96376; 99285; C9803; J1170; J1642; Q9967